=== PATIENT | male | born 1930 | race Caucasian/White ===

== ENCOUNTER 2016-10-15 14:46 | Emergency (ER) | payer MEDICARE ==
[~2016-10-15 14:46] MED LIST: AMARYL1 MG PO; ASPIRIN CHEWABL81 MG PO; COREG 12.5MG12.5 MG PO; EFFIENT10 MG PO; GLUCOPHAGE 500500 MG GT; LISINOPRIL40 MG PO; MIRALAX17 GM PO; NITROSTAT 0.40.4 MG SL; PRAVASTATIN SOD80 MG PO; ZYLOPRIM 100 M100 MG PO
[2016-10-15 17:40] LABS: HEMOGLOBIN 15.3 gm/dl (14.0-17.5); RED BLOOD COUNT 4.98 M/UL (4.20-5.50); WHITE BLOOD COUNT 8.4 K/UL (4.5-11.0)
[2016-10-15 17:42] LABS: BUN/CREATININE RATIO 15 (0-10)
== END 2016-10-15 23:00 | disposition home or self-care (01) ==
LOC: ER1 14:46
PROVIDERS: Family Medicine
DX: K62.5 Hemorrhage of anus and rectum (principal); R19.5 Other fecal abnormalities; K44.9 Diaphragmatic hernia without obstruction or gangrene; K57.90 Diverticulosis of intestine, part unspecified, without perforation or abscess without bleeding; K80.20 Calculus of gallbladder without cholecystitis without obstruction; I25.10 Atherosclerotic heart disease of native coronary artery without angina pectoris; E11.9 Type 2 diabetes mellitus without complications; I10 Essential (primary) hypertension; M10.9 Gout, unspecified; Z88.0 Allergy status to penicillin; Z79.82 Long term (current) use of aspirin; Z95.5 Presence of coronary angioplasty implant and graft
CPT/HCPCS: 80053; 81001; 82150; 82272; 83690; 85025; 85610; 85730; 96361; 96374; 99284; C9113; J7050; Q9962

== ENCOUNTER 2017-01-24 17:07 | Emergency (ER) | payer MEDICARE ==
[2017-01-24 17:47] LABS: HEMOGLOBIN 15.4 gm/dl (14.0-17.5); RED BLOOD COUNT 4.78 M/UL (4.20-5.50); WHITE BLOOD COUNT 6.8 K/UL (4.5-11.0)
[2017-01-24 18:12] LABS: BUN/CREATININE RATIO 15 (0-10)
== END 2017-01-25 09:35 | disposition short-term general hospital (02) ==
LOC: ER1 17:07
PROVIDERS: Specialist/Technologist Athletic Trainer
DX: R41.82 Altered mental status, unspecified (principal); R50.9 Fever, unspecified; I10 Essential (primary) hypertension
CPT/HCPCS: 36415; 70450; 71010; 71250; 80053; 81001; 82550; 82553; 83605; 83690; 83874; 83880; 84443; 84484; 85025; 85610; 85730; 87040; 93005; 96374; 96375; 99285; J0696; J3370

== ENCOUNTER 2020-09-28 10:25 | Emergency (ER) | payer MEDICARE ==
[~2020-09-28 10:25] MED LIST changes: +BACTROBAN OINT22 GM EXT; +COREG6.25 MG PO
[2020-09-28 11:50] LABS: RED BLOOD COUNT 5.04 M/UL (4.20-5.50); WHITE BLOOD COUNT 7.4 K/UL (4.5-11.0)
[2020-09-28 12:12] LABS: BUN/CREATININE RATIO 22 (0-10)
== END 2020-09-28 14:06 | disposition home or self-care (01) ==
LOC: ER1 10:25
PROVIDERS: Student in an Organized Health Care Education/Training Program
DX: J32.9 Chronic sinusitis, unspecified (principal); B96.89 Other specified bacterial agents as the cause of diseases classified elsewhere; E11.9 Type 2 diabetes mellitus without complications; Z88.0 Allergy status to penicillin
CPT/HCPCS: 36415; 70487; 71045; 80053; 85025; 99284; Q9963

== ENCOUNTER 2020-10-14 09:19 | Emergency (ER) | payer MEDICARE ==
[2020-10-14 10:05] LABS: HEMOGLOBIN 14.9 gm/dl (14.0-17.5); RED BLOOD COUNT 4.7 M/UL (4.20-5.50); WHITE BLOOD COUNT 5.9 K/UL (4.5-11.0)
[2020-10-14 10:29] LABS: BUN/CREATININE RATIO 16 (0-10)
[2020-10-14] MEDS ORDERED: VITAMIN D3125 MC1 PO (12:31)
[2020-10-14] MEDS ORDERED: NEURONTIN300 MG PO (12:31)
[2020-10-14] MEDS ORDERED: VITAMIN C1000 M2 PO (12:31)
[2020-10-14] MEDS ORDERED: ZINC50 M1 PO (12:31)
== END 2020-10-14 12:36 | disposition home or self-care (01) ==
LOC: ER1 09:19
PROVIDERS: Internal Medicine
DX: U07.1 COVID-19 (principal); G50.0 Trigeminal neuralgia; E11.9 Type 2 diabetes mellitus without complications; I10 Essential (primary) hypertension; Z88.0 Allergy status to penicillin
CPT/HCPCS: 36415; 71045; 80053; 85025; 93005; 99284; M0239

== ENCOUNTER 2020-10-23 15:58 | Emergency (ER) | payer MEDICARE ==
[~2020-10-23 15:58] MED LIST changes: +NEURONTIN300 MG PO; +VITAMIN C1000 M2 PO; +VITAMIN D3125 MC1 PO; +ZINC50 M1 PO
[2020-10-23] MEDS ORDERED: HYDROCODON-ACE1 EAC4 PO (17:52)
== END 2020-10-23 18:15 | disposition home or self-care (01) ==
LOC: ER1 15:58
DX: R51.9 Headache, unspecified (principal); I10 Essential (primary) hypertension; E11.9 Type 2 diabetes mellitus without complications; Z88.0 Allergy status to penicillin; Z79.84 Long term (current) use of oral hypoglycemic drugs
CPT/HCPCS: 99283

== ENCOUNTER 2020-11-04 23:01 | Emergency (ER) | payer MEDICARE ==
[~2020-11-04 23:01] MED LIST changes: +HYDROCODON-ACE1 EAC4 PO
[2020-11-05 01:02] LABS: RED BLOOD COUNT 4.67 M/UL (4.20-5.50); WHITE BLOOD COUNT 9.1 K/UL (4.5-11.0)
[2020-11-05 01:30] LABS: BUN/CREATININE RATIO 16 (0-10)
== END 2020-11-05 05:30 | disposition home or self-care (01) ==
LOC: ER1 23:01
PROVIDERS: Emergency Medicine
DX: R41.0 Disorientation, unspecified (principal); R53.1 Weakness; E11.9 Type 2 diabetes mellitus without complications; I10 Essential (primary) hypertension; Z88.0 Allergy status to penicillin
CPT/HCPCS: 70450; 71045; 80053; 81001; 82550; 82553; 83690; 83735; 83874; 83880; 84484; 85025; 93005; 99285